=== PATIENT | female | born 1975 | race Native Hawaiian/Other Pacific Islander ===

== ENCOUNTER 2020-09-06 13:53 | Outpatient (CLI) | payer BC | END 2020-09-06 20:01 | disposition home or self-care (01) | LOC: MAMMO 13:53 | DX: Z12.31 Encounter for screening mammogram for malignant neoplasm of breast (principal) ==

== ENCOUNTER 2022-12-22 12:14 | Outpatient (CLI) | payer OTHER | END 2022-12-22 19:25 | disposition home or self-care (01) | LOC: MAMMO 12:14 | PROVIDERS: ATTEND Nurse Practitioner Family | DX: Z12.31 Encounter for screening mammogram for malignant neoplasm of breast (principal) ==